=== PATIENT | female | born 1990 | race Caucasian/White ===

== ENCOUNTER 2018-05-02 16:53 | Emergency (ER) | payer OTHER ==
[2018-05-02] MEDS ORDERED: Lidocaine 1% w/Epinephrine 1:100K 20 ML VIAL ONE (17:54)
== END 2018-05-02 18:29 | disposition home or self-care (01) ==
LOC: ERS 16:53
DX: L02.414 Cutaneous abscess of left upper limb (principal)
CPT/HCPCS: 87070; 87077; 87186; 87205; 99283; J2001